=== PATIENT | male | born 1955 | race Caucasian/White ===

== ENCOUNTER → 2019-08-20 | Outpatient (CLI) | payer OTHER ==
[~2019-08-20] MED LIST: IOHEXOL 240 MG/ML 50ML VIAL. ONE; IOHEXOL 240 MG/ML 50ML VIAL. PO ONE; IOHEXOL 300 MG/ML 75 ML VIAL. IV ONE
--- NOTE | 2019-08-20 10:38 | RAD ---
Examination: CT ABD PELV W/ORAL IV CONTRAST History: Abnormal colonoscopy, diverticulosis, prostate cancer Comparison/Correlation: None Findings: Axial images of the abdomen and pelvis were obtained following IV and oral contrast. Sagittal and coronal reformatted images were provided. Minimal bibasilar atelectasis is present. Liver, spleen, pancreas, adrenal glands, and kidneys are normal. Gallbladder fossa is unremarkable. Urinary bladder is unremarkable. Prostate gland measures 4 cm x 4.6 cm in the axial plane. No enlarged abdominal or pelvic lymph nodes. Appendix is normal. Diverticulosis of the colon is minimal. No bowel obstruction or extraluminal gas. No ascites or pelvic free fluid. Well-circumscribed 0.6 cm in diameter sclerotic density of the right acetabulum is present. Punctate sclerotic density involving the right femoral neck. Right superior sacroiliac joint sclerosis noted. Sacralization of L5 is noted. L4-5 disc space narrowing with vacuum phenomenon is present. Narrowing of the left L4-5 neural foramen noted. Paravertebral hernia contains omental fat. Impression: Sclerotic density involving the right acetabulum and right femoral neck are well-circumscribed likely representing bone islands. The patient has a reported history of prostate cancer. Correlate with prior exams to assess stability if available. No suspicious abdominal or pelvic enlarged lymph node or mass. Minimal diverticulosis. PQRS Compliance Statement: One or more of the following individualized dose reduction techniques were utilized for this examination: 1. Automated exposure control 2. Adjustment of the mA and/or kV according to patient size 3. Use of iterative reconstruction technique Electronically signed by: Kosta Apple MD (08/20/2019 10:35 AM) [facility]
== END | disposition home or self-care (01) ==
LOC: CT 08:05
PROVIDERS: ATTEND Internal Medicine Gastroenterology
DX: K57.30 Diverticulosis of large intestine without perforation or abscess without bleeding (principal); K43.9 Ventral hernia without obstruction or gangrene; J98.11 Atelectasis; Z85.038 Personal history of other malignant neoplasm of large intestine
CPT/HCPCS: 74177; Q9966; Q9967